=== PATIENT | female | born 1960 | race African-American/Black ===

== ENCOUNTER 2017-02-05 08:58 | Inpatient (IN) | payer OTHER ==
[~2017-02-05] VITALS: Ht 163.8 cm; Wt 61.9 kg
[~2017-02-05 08:58] MED LIST: BUSPAR15 MG PO; BUSPAR30 MG PO; COZAAR50 MG PO; FENOFIBRATE160 M1 PO; HYDROCHLOROTH12.5 M3 PO; HYDROCHLOROTHIA25 MG PO; HYDROCODON-ACE1 EAC7 PO; IMODIUM MS REL1 EACH PO; IRON325 MG PO; K-DUR10 MEQ PO; K-DUR20 MEQ PO; KLOR-CON M1010 MEQ PO; KLOR-CON M2020 MEQ PO; KLOR-CON20 MEQ PO; LEXAPRO10 MG PO; LEXAPRO5 MG PO; LO-DOSE ASPIRIN81 M1 PO; LOMOTIL TABLET1 EACH PO; LORCET 5-325 M1 EACH PO; LOSARTAN POTAS100 MG PO; MORPHINE SULFAT15 MG PO; NORCO 5/3251 TABLET PO; NORVASC10 MG PO; NORVASC5 MG PO; OXYCODONE-ACET1 EACH PO; REMERON15 M2 PO; ZOCOR40 MG PO
[2017-02-05 10:11] LABS: BASOPHIL COUNT 0.1 K/uL (0-0.1); EOSINOPHIL (%) 1.5 % (0-5); EOSINOPHIL COUNT 0.1 K/uL (0-0.3); HEMATOCRIT 36.9 % (36.0-46.0); IMMATURE GRANULOCYTE (%) 0.3 % (0.0-0.7); INSTRUMENT ABS NEUTROPHIL CT 3.9 K/uL; LYMPHOCYTE COUNT 2.2 K/uL (1.0-2.8); MCH 26.3 PG (29.0-34.0); MCHC 33.1 G/DL (30.0-36.0); MCV 79.5 FL (83-99); MEAN PLAT.VOLUME 9.3 uM^3 (9.5-12.4); MONOCYTE (%) 7.6 % (3-12); MONOCYTE COUNT 0.5 K/uL (0-0.8); NEUTROPHIL (%) 57.3 % (45-76); NEUTROPHIL COUNT 3.9 K/uL (1.8-6.4); PLATELET COUNT 353 K/uL (156-360); RBC DIS.WIDTH-CV 14.7 % (11.8-14.6); RBC DIS.WIDTH-SD 42.7 % (39-53); RED BLOOD COUNT 4.64 M/uL (3.80-5.20); WHITE BLOOD COUNT 6.9 K/uL (4.1-10.2)
[2017-02-05 10:21] LABS: CHLORIDE 109 mEq/L (99-109); POTASSIUM 3.2 mEq/L (3.7-5.4); SODIUM 143 mEq/L (136-147)
[2017-02-05 10:24] LABS: GLUCOSE 99 mg/dL (70-99)
[2017-02-05 10:25] LABS: ANION GAP 19 MEQ/L (2-14)
[2017-02-05 10:26] LABS: TOTAL BILIRUBIN 0.5 mg/dL (0.0-1.0)
[2017-02-05 10:27] LABS: ALKALINE PHOSPHATASE 48 IU/L (3-129); GFR ESTIMATE (CALCULATED) > 59 mL/min/
[2017-02-05 10:28] LABS: UREA NITROGEN (BUN) 22 mg/dL (9-23)
[2017-02-05 10:30] LABS: CREATINE KINASE 68 IU/L (1-294); TOTAL CK 68 IU/L (1-294)
[2017-02-05 10:36] LABS: ADD MIUA? NO; BILIRUBIN NEGATIVE; BLOOD NEGATIVE; COLOR YELLOW ((YELLOW)); GLUCOSE (STRIP) NEGATIVE; KETONES NEGATIVE; LEUKOCYTES NEGATIVE; NITRITE NEGATIVE; PROTEIN (STRIP) NEGATIVE; SPECIFIC GRAVITY 1.019 (1.000-1.030); UCUL ADDED? NO; UROBILINOGEN 0.2 MG/DL (0.2-1.0)
[2017-02-05 10:36] LABS: CK-MB < 0.4 ng/mL (0.0-4.9)
[2017-02-05 11:28] LABS: AMPHETAMINE NEGATIVE (500 ng/mL); BARBITURATES NEGATIVE (200 ng/mL); BENZODIAZEPINES NEGATIVE (150 ng/mL); COCAINE NEGATIVE (150 ng/mL); INTERNAL CONTROLS VALID? YES; METHADONE NEGATIVE (200 ng/mL); METHAMPHETAMINE NEGATIVE (500 ng/mL); OPIATES (MORPHINE) NEGATIVE (100 ng/mL); OXYCODONE NEGATIVE (100 ng/mL); PHENCYCLIDINE NEGATIVE (25 ng/mL); PROPOXYPHENE NEGATIVE (300 ng/mL); THC CANNABINOIDS NEGATIVE (50 ng/mL); TRICYCLIC ANTIDEPRESSANTS NEGATIVE (300 ng/mL)
[2017-02-05 15:26] VITALS: BP 160/82
[2017-02-05 16:41] VITALS: BP 157/87
[2017-02-05 16:53] LABS: POINT-OF-CARE METER ID UU13113774
[2017-02-05 17:07] VITALS: BP 157/87
[2017-02-05 21:39] LABS: POINT-OF-CARE METER ID UU13113725
[2017-02-06 00:10] VITALS: BP 162/88
[2017-02-06 05:48] LABS: HEMATOCRIT 33.5 % (36.0-46.0); MCH 26.7 PG (29.0-34.0); MCHC 32.5 G/DL (30.0-36.0); MCV 82.1 FL (83-99); MEAN PLAT.VOLUME 9.2 uM^3 (9.5-12.4); PLATELET COUNT 303 K/uL (156-360); RBC DIS.WIDTH-CV 14.8 % (11.8-14.6); RBC DIS.WIDTH-SD 44.6 % (39-53); RED BLOOD COUNT 4.08 M/uL (3.80-5.20); WHITE BLOOD COUNT 5.9 K/uL (4.1-10.2)
[2017-02-06 05:59] LABS: POINT-OF-CARE METER ID UU13113725
[2017-02-06 06:16] LABS: ANION GAP 11 MEQ/L (2-14); CHLORIDE 111 MEQ/L (99-109); GFR ESTIMATE (CALCULATED) > 59 mL/min/; GLUCOSE 142 mg/dL (70-99); SAMPLE HEMOLYSIS CHECK 0; SAMPLE ICTERIC CHECK 0; SAMPLE LIPEMIA CHECK 0; SODIUM 143 MEQ/L (136-147); UREA NITROGEN (BUN) 13 mg/dL (9-23)
[2017-02-06 07:00] VITALS: BP 165/79
[2017-02-06 11:00] VITALS: BP 178/90
[2017-02-06 11:43] LABS: POINT-OF-CARE METER ID UU13113725
[2017-02-06 15:00] VITALS: BP 190/90
[2017-02-06 16:13] VITALS: BP 129/89
[2017-02-06 16:58] LABS: POINT-OF-CARE METER ID UU13113725
[2017-02-06 21:38] LABS: POINT-OF-CARE METER ID UU13113774
== END 2017-02-07 04:03 | DRG 54 ==
LOC: EME 08:58 → 5EAST 11:05 → EDOF 11:05 → ENRESERV 11:19 → 5EAST 14:44 → ENRESERV 02-06 20:50 → 5EAST 02-06 21:23
PROVIDERS: Emergency Medicine; Internal Medicine
DX: C79.31 Secondary malignant neoplasm of brain (principal); G06.0 Intracranial abscess and granuloma; G93.6 Cerebral edema; G91.9 Hydrocephalus, unspecified; E87.2 Acidosis; C78.00 Secondary malignant neoplasm of unspecified lung; C53.9 Malignant neoplasm of cervix uteri, unspecified; C18.9 Malignant neoplasm of colon, unspecified; E86.0 Dehydration; D64.9 Anemia, unspecified; E87.6 Hypokalemia; E83.52 Hypercalcemia; I10 Essential (primary) hypertension; E78.5 Hyperlipidemia, unspecified; W19.XXXA Unspecified fall, initial encounter; F32.9 Major depressive disorder, single episode, unspecified; Z90.49 Acquired absence of other specified parts of digestive tract; Z92.3 Personal history of irradiation; Z90.710 Acquired absence of both cervix and uterus; Z85.038 Personal history of other malignant neoplasm of large intestine; Z85.41 Personal history of malignant neoplasm of cervix uteri; Z92.21 Personal history of antineoplastic chemotherapy; Z82.49 Family history of ischemic heart disease and other diseases of the circulatory system
CPT/HCPCS: 70450; 70553; 71010; 71260; 72125; 74177; 80048; 80053; 81003; 82550; 82553; 82948; 83605; 85025; 85027; 86778 90; 87040; 93005; 99202; 99281; 99285; J0461; J1100; J1650; J1815; J1953; J2405; J3480; J7030; J7050; J7120; S0028